=== PATIENT | male | born 1970 | race African-American/Black ===

== ENCOUNTER 2020-02-15 08:35 | Inpatient (IN) | payer OTHER ==
--- OUTSIDE RECORDS SUMMARY | 2020-02-15 08:40 | XMS ---
:1970 Author Organization [facility] Support Name Relationship Address Phone UE Unavailable Unavailable Unavailable LUCIA RAI [address] [phone] [place], [place] Re-disclosure Warning The records that you are about to access may contain information from federally- assisted alcohol or drug abuse programs. If such information is present, then the following federally mandated warning applies: This information has been disclosed to you from records protected by federal confidentiality rules (42 CFR part 2). The federal rules prohibit you from making any further disclosure of this information unless further disclosure is expressly permitted by the written consent of the person to whom it pertains or as otherwise permitted by 42 CFR part 2. A general authorization for the release of medical or other information is NOT sufficient for this purpose. The Federal rules restrict any use of the information to criminally investigate or prosecute any alcohol or drug abuse patient.The records that you are about to access may contain highly sensitive health information, the redisclosure of which is protected by Article 27-F of the [facility] Public Health law. If you continue you may haveaccess to information: Regarding HIV / AIDS; Provided by facilities licensed or operated by the [facility] Office of Mental Health; or Provided by the [facility] Office for People With Developmental Disabilities. If such information is present, then the following [facility] mandated warning applies: This information has been disclosed to you from confidential records which are protected by state law. State law prohibits you from making any further disclosure of this information without the specific written consent of the person to whom it pertains, or as otherwise permitted by law. Any unauthorized further disclosure in violation of state law may result in a fine or mcfp sentence or both. A general authorization for the release of medical or other information is NOT sufficient authorization for further disclosure. Insurance Providers Payer name Policy type Policy ID Covered Covered constitution party's Policy P brendan / Coverage constitution party ID relationship to [facility] ormation type castellon [facility] [id number] FIRST
--- NOTE | 2020-02-15 08:51 | BHS.RME ---
Substance Use & Tx History - Substance Use History Alcohol Substance amount: 1/2 pint vodka + 2 beers 24 oz Frequency of use: Daily Substance route: Oral Date of Last Use: 02/14/20 (started age 21) Heroin Substance amount: 3-5 bags heroin Frequency of use: Daily Substance route: Inhalation (ex: sniffing or snorting) Date of Last Use: 02/14/20 Nicotine Substance amount: 7 ciggs Frequency of use: Daily Substance route: Smoking Date of Last Use: 02/15/20 (started age 17) Methadone Substance amount: street 30 mg Frequency of use: Less than 5 times a year Substance route: Oral Date of Last Use: 02/15/20 (bought this 8AM to not be sick) - Last Treatment Date of last treatment: 2014 Treatment type: Substance Use Disorder (ILSA) Where was last treatment: Detox Physical/Psych/Mental Status - Behavior General Behavior: Increased activity (restlessness, agitation) Eye Contact: Normal - Cooperativeness Cooperativeness: Cooperative - Thinking Thought Processes: Tight, Logical, Goal Directed - Physical Health Problems Is patient presently having any pain?: No Does patient presently have any injuries (include location): No Does patient currently have a fever: No Is patient : No COWS - Scale Resting Pulse: 0= [place] 80 or Below Sweatin= Chills/Flushing Restless Observation: 0= Sits Still Pupil Size: 0= Normal to Room Light Bone or Joint Aches: 1= Mild Discomfort Runny Nose/ Eye Tearin= Nasal Congestion GI Upset > 30mins: 1= Stomach Cramp Tremor Observation: 1= Tremor [place], Not Seen Yawning Observation: 0= None Anxiety or Irritability: 0= None Goose Flesh Skin: 0=Smooth Skin COWS Score: 5 CIWA Nausea/Vomitin-Mild Nausea/No Vomiting Muscle Tremors: 2 Anxiety: 2 Agitation: 2 Paroxysmal Sweats: 2 Orientation: 0-Oriented Tacttile Disturbances: 0-None Auditory Disturbances: 0-None Visual Disturbances: 0-None Headache: 1-Very Mild CIWA-Ar Total Score: 10
[2020-02-15 09:08] VITALS: BMI 23.3
--- NOTE | 2020-02-15 09:39 | HP ---
COWS - Scale Resting Pulse: 0= [place] 80 or Below Sweatin= Chills/Flushing Restless Observation: 0= Sits Still Pupil Size: 0= Normal to Room Light Bone or Joint Aches: 1= Mild Discomfort Runny Nose/ Eye Tearin= Nasal Congestion GI Upset > 30mins: 1= Stomach Cramp Tremor Observation: 1= Tremor [place], Not Seen Yawning Observation: 0= None Anxiety or Irritability: 0= None Goose Flesh Skin: 0=Smooth Skin COWS Score: 5 CIWA Score Nausea/Vomitin-Mild Nausea/No Vomiting Muscle Tremors: 2 Anxiety: 2 Agitation: 2 Paroxysmal Sweats: 2 Orientation: 0-Oriented Tacttile Disturbances: 0-None Auditory Disturbances: 0-None Visual Disturbances: 0-None Headache: 1-Very Mild CIWA-Ar Total Score: 10 - Admission Criteria OASAS Guidelines: Admission for Medically Managed Detox: Requires at least one of the followin. CIWA greater than 12 2. Seizures within the past 24 hours 3. Delirium tremens within the past 24 hours 4. Hallucinations within the past 24 hours 5. Acute intervention needed for co occurring medical disorder 6. Acute intervention needed for co occurring psychiatric disorder 7. Severe withdrawal that cannot be handled at a lower level of care (continued vomiting, continued diarrhea, abnormal vital signs) requiring intravenous medication and/or fluids 8. Admitting History and Physical - Smoking History Smoking history: Current every day smoker Have you smoked in the past 12 months: Yes Aproximately how many cigarettes per day: 6 - Alcohol/Substance Use Hx Alcohol Use: Yes (1/2 to one pint Cognac and 2-3 beers daily) Admission [facility] Chief Complaint: " I need help to stop drinking and drugging." Allergies/Adverse Reactions: Allergies Allergy/AdvReac Type Severity Reaction Status Date / Time No Known Allergies Allergy Verified 02/15/20 09:19 History of Present Illness: 49 year old male with history of alcohol dependence with early withdrawal. He has been here in [facility] in 2015 and completed detox. 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 Heroin Substance amount: 3-5 bags heroin Frequency of use: Daily Substance route: Inhalation (ex: sniffing or snorting) Date of Last Use: 02/14/20 Patient never overdose and has narcan at home Nicotine Substance amount: 7 ciggs Frequency of use: Daily Substance route: Smoking Date of Last Use: 02/15/20 (started age 17) Methadone Substance amount: street 30 mg Frequency of use: Less than 5 times a year Substance route: Oral Date of Last Use: 02/15/20 (bought this 8AM to not be sick) - Last Treatment Date of last treatment: 2014 Treatment type: Substance Use Disorder (LISA) Where was last treatment: Detox CIWA= 10 CRICKET=0.000 COWS=5 mitigated by use of methadone this morning. Urine Tox: GERALDINE, FEN, MOP, MTD, BZO states he uses xanax sporadically Exam Limitations: No Limitations - Ebola screening Have you traveled outside of the country in the last 21 days: No Have you had contact with anyone from an Ebola affected area: No Have you been sick,other than usual withdrawal symptoms: No Do you have a fever: No - Review of Systems Constitutional: Chills, Diaphoresis EENT: reports: No Symptoms Reported Respiratory: reports: No Symptoms reported Cardiac: reports: No Symptoms Reported GI: reports: No Symptoms Reported : reports: No Symptoms Reported Musculoskeletal: reports: No Symptoms Reported Integumentary: reports: No Symptoms Reported Neuro: reports: No Symptoms reported Endocrine: reports: No Symptoms Reported Hematology: reports: No Symptoms Reported Psychiatric: reports: Judgement Intact, Mood/Affect Appropiate, Orientated x3, Agitated, Anxious Other Systems: Reviewed and Negative Patient History - Patient Medical History Hx Anemia: No Hx Asthma: No Hx Chronic Obstructive Pulmonary Disease (COPD): No Hx Cancer: No Hx Cardiac Disorders: No Hx Congestive Heart Failure: No Hx Hypertension: No Hx Hypercholesterolemia: No Hx Pacemaker: No HX Cerebrovascular Accident: No Hx Seizures: No Hx Dementia: No Hx Diabetes: No Hx Gastrointestinal Disorders: No Hx Liver Disease: No Hx Genitourinary Disorders: No Hx Sexually Transmitted Disorders: No Hx Renal Disease (ESRD): No Hx Thyroid Disease: No Hx Human Immunodeficiency Virus (HIV): No (NEGATIVE) Hx Hepatitis C: No Hx Depression: No Hx Suicide Attempt: No Hx Bipolar Disorder: No Hx Schizophrenia: No - Patient Surgical History Past Surgical History: No Hx Neurologic Surgery: No Hx Cataract Extraction: No Hx Cardiac Surgery: No Hx Lung Surgery: No Hx Breast Surgery: No Hx Breast Biopsy: No Hx Abdominal Surgery: No Hx Appendectomy: No Hx Cholecystectomy: No Hx Genitourinary Surgery: No Hx Section: No Hx Orthopedic Surgery: No Anesthesia Reaction: No - PPD History Previous Implant?: Yes Documented Results: Negative w/o proof Implanted On Prior [facility] Admission?: Yes Date: 07/18/14 Results: 0mm PPD to be Administered?: Yes - Smoking Cessation Smoking history: Current every day smoker Have you smoked in the past 12 months: Yes Aproximately how many cigarettes per day: 6 Hx Chewing Tobacco Use: No Initiated information on smoking cessation: Yes 'Breaking Loose' booklet given: 02/15/20 - Substances abused Alprazolam (Xanax) Other (specify): 1/2 Substance route: Oral Frequency: Daily Amount used: 1/2 tab Age of first use: 21 Date of last use: 02/14/20 Heroin Other (specify): 3-5 bags Substance route: Inhalation Frequency: Daily Amount used: 3-5 bags Age of first use: 24 Date of last use: 02/14/20 Alcohol Other (specify): 1/2 pint Substance route: Oral Frequency: Daily Amount used: vodka Age of first use: 24 Date of last use: 02/14/20 Admission Physical Exam BHS - Vital Signs Vital Signs: Vital Signs - 24 hr 02/15/20 09:06 Temperature 96.5 F L Pulse Rate 66 Respiratory 18 Rate Blood Pressure 132/85 - Physical General Appearance: Yes: Mild Distress, Irritable, Sweating, Anxious HEENTM: Yes: EOMI, Hearing grossly Normal, Normal ENT Inspection, Normocephalic, Normal Voice, PRAVEEN, Pharynx Normal, Tm's normal Respiratory: Yes: Chest Non-Tender, Lungs Clear, Normal Breath Sounds, No Respiratory Distress, No Accessory Muscle Use Neck: Yes: No masses,lesions,Nodules, Supple, Trachea in good position Breast: Yes: Within Normal Limits Cardiology: Yes: Regular Rhythm, Regular Rate, S1, S2 Abdominal: Yes: Normal Bowel Sounds, Non Tender, Flat, Soft Genitourinary: Yes: Within Normal Limits Back: Yes: Normal Inspection Musculoskeletal: Yes: full range of Motion, Gait Steady, Pelvis Stable Extremities: Yes: Normal Capillary Refill, Normal Inspection, Normal Range of Motion, Non-Tender 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: 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 intact, Fully Oriented, Alert, Motor Strength 5/5, Normal Mood/Affect, Normal Response Integumentary: Yes: Normal Color, Warm Lymphatic: Yes: Within Normal Limits Cleared for Admission S - Detox or Rehab [facility] Level of Care: Medically Managed Detox Regimen/Protocol: Librium Claeared for Rehab Admission: No Screened but not Admitted - Documentation of Visit Screened but not Admitted: No Breathalyzer - Breathalyzer Breathalyzer: 0 Vital Signs - Vital Signs Vital signs refused: No Temperature: 96.5 F Pulse Rate: 66 Respiratory Rate: 18 Blood Pressure: 132/85 BP Location: Right Arm Blood Pressure position: Sitting - Height Height: 5 ft 10 in - Weight Weight: 163 lb Weight measurement method: Standing scale - BMI Body Mass Index (BMI): 23.3 - Bowel Function Bowel Movement: No Urine Drug Screen - Test Device Lot number: [id number] Expiration date: 12/07/21 - Control Is test valid?: Yes - Results Drug screen NEGATIVE: No Urine drug screen results: GERALDINE-Cocaine, FEN-Fentanyl, MOP-Opiates, MTD- Methadone, BZO-Benzodiazepines Inpatient Rehab Admission - Rehab Decision to Admit Inpatient rehab admission?: No
[2020-02-15] MEDS ORDERED: MAGNESIUM CITRATE 300 ML BOTTLE PO PRN (09:48)
[2020-02-15] MEDS ORDERED: ACETAMINOPHEN 325 MG TABLET (FP) PO PRN ×2 (09:48)
[2020-02-15] MEDS ORDERED: ONDANSETRON *ODT* 4 MG TABLET SL PRN (09:48)
[2020-02-15] MEDS ORDERED: MAG HYDROX/AL HYDROX/SIMETH 30 ML UNIT-DOSE CUP PO PRN (09:48)
[2020-02-15] MEDS ORDERED: MAGNESIUM HYDROX 2400MG/30ML ORAL SUSPENSION 30 ML CUP PO PRN (09:48)
[2020-02-15] MEDS ORDERED: chlordiazePOXIDE HCL 25 MG CAPSULE PO PRN (09:48)
[2020-02-15] MEDS ORDERED: METHOCARBAMOL 500 MG TABLET PO PRN (09:48)
[2020-02-15] MEDS ORDERED: IBUPROFEN 400 MG TABLET (FP) PO PRN (09:48)
[2020-02-15] MEDS ORDERED: NICOTINE POLACRILEX 2 MG GUM BUC PRN (09:48)
[2020-02-15] MEDS ORDERED: BISMUTH SUBSALICYLATE 524 MG/30 ML UD PO PRN (09:48)
[2020-02-15] MEDS ORDERED: MENTHOL/PHENOL 1 EACH UD MM PRN (09:48)
--- OUTSIDE RECORDS SUMMARY | 2020-02-15 09:48 | XMS ---
:1970 [facility] Support Name Relationship Address Phone UE Unavailable Unavailable Unavailable LUCIA RAI [address] [place], [place] Re-disclosure Warning The records that [...] is protected by Article 27-F of the [facility] Public Health law. If you continue you may haveaccess to information: Regarding HIV / AIDS; Provided by facilities licensed or operated by the [facility] Office of Mental Health; or Provided by the [facility] Office for People With Developmental Disabilities. If such information is present, then the following [facility] mandated warning applies: This information has [...] law may result in a fine or snf sentence or both. A general authorization for the release of medical or other information is NOT sufficient authorization for further disclosure. Insurance Providers Payer name Policy type Policy ID Covered Covered alliance party's Policy P brendan / Coverage alliance party ID relationship to [facility] ormation type castellon [facility] [id number] FIRST
[2020-02-15] MEDS ORDERED: cloNIDine HCL 0.1 MG TABLET PO PRN (09:51)
[2020-02-15] MEDS ORDERED: METHADONE HCL 10 MG TABLET (FOR DETOX USE ONLY) PO ONE (09:51)
[2020-02-15] MEDS: chlordiazePOXIDE HCL 25 MG CAPSULE PO SCH ×3 (10:51→22:25)
[2020-02-15] MEDS: NICOTINE 7 MG/24 HOURS TOPICAL PATCH TD SCH (10:55)
[2020-02-15] MEDS: PRENATAL VITAMINS W/ FOLIC ACID TABLET (FP) PO SCH (10:55)
[2020-02-15] MEDS: hydrOXYzine PAMOATE 25 MG CAPSULE (FP) PO SCH ×4 (10:55→22:25)
[2020-02-15 14:57] LABS: HEMATOCRIT 44.2 % (35.4-49); HEMOGLOBIN 14.6 GM/dL (11.7-16.9); MEAN CELL VOLUME 88.1 fl (80-96); MEAN PLT VOLUME 8.1 fl (7.5-11.1); PLATELET COUNT 266 K/MM3 (134-434); RBC 5.02 M/mm3 (4.00-5.60); RDW 15.1 % (11.9-15.9); WHITE BLOOD COUNT 8.4 K/mm3 (4.0-10.0)
[2020-02-15 15:13] LABS: ALBUMIN 3.6 g/dl (3.4-5.0); BLOOD UREA NITROGEN 6.8 mg/dL (7-18); POTASSIUM 4.9 mmol/L (3.5-5.1)
[2020-02-15 15:14] LABS: BILIRUBIN,TOTAL 0.3 mg/dL (0.2-1); CREATININE 0.8 mg/dL (0.55-1.3); TOT PROT 7.8 g/dl (6.4-8.2)
[2020-02-15] MEDS: MELATONIN 5 MG TABLETS PO SCH (22:25)
[2020-02-15] MEDS: THIAMINE HCL 100 MG TABLET (FP) PO SCH (22:25)
[2020-02-16] MEDS: hydrOXYzine PAMOATE 25 MG CAPSULE (FP) PO SCH ×5 (06:25→23:03)
[2020-02-16] MEDS: chlordiazePOXIDE HCL 25 MG CAPSULE PO SCH ×4 (06:25→23:03)
--- NOTE | 2020-02-16 08:55 | PN ---
S CIWA - CIWA Score Nausea/Vomitin Muscle Tremors: 3 Anxiety: 2 Agitation: 2 Paroxysmal Sweats: 1-Minimal Palms Moist Orientation: 0-Oriented Tacttile Disturbances: 1-Very Mild Itch/Numbness Auditory Disturbances: 0-None Visual Disturbances: 0-None Headache: 2-Mild CIWA-Ar Total Score: 13 BHS COWS - Scale Resting Pulse: 0= [place] 80 or Below Sweatin= No chills or Flushing Restless Observation: 0= Sits Still Pupil Size: 1= Pupils >than Normal Bone or Joint Aches: 2= Severe Diffuse Aches Runny Nose/ Eye Tearin= Runny Nose/Eyes GI Upset > 30mins: 2= Nausea/Diarrhea Tremor Observation of Outstretched Hands: 2= Slight Tremor Visible Yawning Observation: 1= 1-2x During Session Anxiety or Irritability: 2=Irritable/Anxious Goose Flesh Skin: 0=Smooth Skin COWS Score: 12 S Progress Note (SOAP) Subjective: alert,irritable,anxious,interrupted sleep,tremor,pain in the body and lesly,nausea Objective: 02/16/20 11:23 Vital Signs Temperature 96.4 F L 02/16/20 08:40 Pulse Rate 60 02/16/20 08:40 Respiratory Rate 18 02/16/20 08:40 Blood Pressure 122/77 02/16/20 08:40 O2 Sat by Pulse Oximetry (%) 96 02/16/20 06:23 Laboratory Last Values WBC 8.4 K/mm3 (4.0-10.0) 02/15/20 09:45 RBC 5.02 M/mm3 (4.00-5.60) 02/15/20 09:45 Hgb 14.6 GM/dL (11.7-16.9) 02/15/20 09:45 Hct 44.2 % (35.4-49) 02/15/20 09:45 MCV 88.1 fl (80-96) 02/15/20 09:45 MCH 29.0 pg (25.7-33.7) 02/15/20 09:45 MCHC 33.0 g/dl (32.0-35.9) 02/15/20 09:45 RDW 15.1 % (11.9-15.9) 02/15/20 09:45 Plt Count 266 K/MM3 (134-434) D 02/15/20 09:45 MPV 8.1 fl (7.5-11.1) 02/15/20 09:45 Sodium 138 mmol/L (136-145) 02/15/20 09:45 Potassium 4.9 mmol/L (3.5-5.1) 02/15/20 09:45 Chloride 105 mmol/L (98-107) 02/15/20 09:45 Carbon Dioxide 30 mmol/L (21-32) 02/15/20 09:45 Anion Gap 3 MMOL/L (8-16) L 02/15/20 09:45 BUN 6.8 mg/dL (7-18) L 02/15/20 09:45 Creatinine 0.8 mg/dL (0.55-1.3) 10 09:45 Est GFR (CKD-EPI)AfAm 120.72 02/15/20 09:45 Est GFR (CKD-EPI)NonAf 104.16 02/15/20 09:45 Random Glucose 96 mg/dL (74-106) 02/15/20 09:45 Calcium 9.0 mg/dL (8.5-10.1) 02/15/20 09:45 Total Bilirubin 0.3 mg/dL (0.2-1) 02/15/20 09:45 AST 17 U/L (15-37) 02/15/20 09:45 ALT 26 U/L (13-61) 02/15/20 09:45 Alkaline Phosphatase 113 U/L (45-117) 02/15/20 09:45 Total Protein 7.8 g/dl (6.4-8.2) 02/15/20 09:45 Albumin 3.6 g/dl (3.4-5.0) 02/15/20 09:45 Syphilis Serology Non-reactive (NONREACTIVE) 02/15/20 09:45 COVID-19 (ALLIE) Not detected (Not Detected) 02/15/20 09:45 Assessment: 02/16/20 11:24 withdrawal symptom Plan: continue detox methadone and librium regimen
[2020-02-16] MEDS ORDERED: METHADONE HCL 10 MG TABLET (FOR DETOX USE ONLY) ONE (09:36)
[2020-02-16] MEDS ORDERED: METHADONE HCL 5 MG TABLET (FOR DETOX USE ONLY) ONE (09:36)
[2020-02-16] MEDS ORDERED: METHADONE (DETOX) 20 MG, METHADONE (DETOX) 5 MG PO ONE (10:00)
[2020-02-16] MEDS: NICOTINE 7 MG/24 HOURS TOPICAL PATCH TD SCH (10:07)
[2020-02-16] MEDS: PRENATAL VITAMINS W/ FOLIC ACID TABLET (FP) PO SCH (10:07)
[2020-02-16] MEDS ORDERED: guaiFENesin 200 MG/10 ML 10 ML UNIT-DOSE CUPS PO PRN (18:43)
[2020-02-16] MEDS: THIAMINE HCL 100 MG TABLET (FP) PO SCH (23:03)
[2020-02-16] MEDS: MELATONIN 5 MG TABLETS PO SCH (23:03)
[2020-02-17] MEDS: chlordiazePOXIDE HCL 25 MG CAPSULE PO SCH ×4 (07:39→22:18)
[2020-02-17] MEDS: hydrOXYzine PAMOATE 25 MG CAPSULE (FP) PO SCH ×5 (07:40→22:18)
--- NOTE | 2020-02-17 09:40 | PN ---
[facility] CIWA - CIWA Score Nausea/Vomitin-Mild Nausea/No Vomiting Muscle Tremors: 2 Anxiety: 2 Agitation: 2 Paroxysmal Sweats: No Perspiration Orientation: 0-Oriented Tacttile Disturbances: 1-Very Mild Itch/Numbness Auditory Disturbances: 0-None Visual Disturbances: 0-None Headache: 1-Very Mild CIWA-Ar Total Score: 9 BHS COWS - Scale Resting Pulse: 0= [place] 80 or Below Sweatin= No chills or Flushing Restless Observation: 0= Sits Still Pupil Size: 1= Pupils >than Normal Bone or Joint Aches: 2= Severe Diffuse Aches Runny Nose/ Eye Tearin= Nasal Congestion GI Upset > 30mins: 1= Stomach Cramp Tremor Observation of Outstretched Hands: 2= Slight Tremor Visible Yawning Observation: 1= 1-2x During Session Anxiety or Irritability: 2=Irritable/Anxious Goose Flesh Skin: 0=Smooth Skin COWS Score: 10 [facility] Progress Note (SOAP) Subjective: alert,irritable,anxious,interrupted sleep,tremor,aching pain body and back,nausea Objective: 02/17/20 09:38 Vital Signs Temperature 97.8 F 02/17/20 08:42 Pulse Rate 74 02/17/20 08:42 Respiratory Rate 18 02/17/20 08:42 Blood Pressure 130/92 02/17/20 08:42 O2 Sat by Pulse Oximetry (%) 96 02/17/20 06:23 Laboratory Last Values WBC 8.4 K/mm3 (4.0-10.0) 02/15/20 09:45 RBC 5.02 M/mm3 (4.00-5.60) 02/15/20 09:45 Hgb 14.6 GM/dL (11.7-16.9) 02/15/20 09:45 Hct 44.2 % (35.4-49) 02/15/20 09:45 MCV 88.1 fl (80-96) 02/15/20 09:45 MCH 29.0 pg (25.7-33.7) 02/15/20 09:45 MCHC 33.0 g/dl (32.0-35.9) 02/15/20 09:45 RDW 15.1 % (11.9-15.9) 02/15/20 09:45 Plt Count 266 K/MM3 (134-434) D 02/15/20 09:45 MPV 8.1 fl (7.5-11.1) 02/15/20 09:45 Sodium 138 mmol/L (136-145) 02/15/20 09:45 Potassium 4.9 mmol/L (3.5-5.1) 02/15/20 09:45 Chloride 105 mmol/L (98-107) 02/15/20 09:45 Carbon Dioxide 30 mmol/L (21-32) 02/15/20 09:45 Anion Gap 3 MMOL/L (8-16) L 02/15/20 09:45 BUN 6.8 mg/dL (7-18) L 02/15/20 09:45 Creatinine 0.8 mg/dL (0.55-1.3) 10 09:45 Est GFR (CKD-EPI)AfAm 120.72 10 09:45 Est GFR (CKD-EPI)NonAf 104.16 02/15/20 09:45 Random Glucose 96 mg/dL (74-106) 02/15/20 09:45 Calcium 9.0 mg/dL (8.5-10.1) 02/15/20 09:45 Total Bilirubin 0.3 mg/dL (0.2-1) 02/15/20 09:45 AST 17 U/L (15-37) 02/15/20 09:45 ALT 26 U/L (13-61) 02/15/20 09:45 Alkaline Phosphatase 113 U/L (45-117) 02/15/20 09:45 Total Protein 7.8 g/dl (6.4-8.2) 02/15/20 09:45 Albumin 3.6 g/dl (3.4-5.0) 02/15/20 09:45 Syphilis Serology Non-reactive (NONREACTIVE) 02/15/20 09:45 COVID-19 (ALLIE) Not detected (Not Detected) 02/15/20 09:45 Assessment: 02/17/20 09:39 withdrawal symptom Plan: continue detox methadone and librium regimen
[2020-02-17] MEDS ORDERED: METHADONE HCL 10 MG TABLET (FOR DETOX USE ONLY) PO ONE (10:00)
[2020-02-17] MEDS: NICOTINE 7 MG/24 HOURS TOPICAL PATCH TD SCH (10:14)
[2020-02-17] MEDS: PRENATAL VITAMINS W/ FOLIC ACID TABLET (FP) PO SCH (10:15)
[2020-02-17] MEDS: MELATONIN 5 MG TABLETS PO SCH (22:18)
[2020-02-17] MEDS: THIAMINE HCL 100 MG TABLET (FP) PO SCH (22:18)
[2020-02-18] MEDS ORDERED: chlordiazePOXIDE HCL 10 MG CAPSULE PO PRN
[2020-02-18] MEDS: hydrOXYzine PAMOATE 25 MG CAPSULE (FP) PO SCH ×5 (06:11→22:32)
[2020-02-18] MEDS: chlordiazePOXIDE HCL 10 MG CAPSULE PO SCH ×4 (06:11→22:32)
--- NOTE | 2020-02-18 08:40 | PN ---
[facility] CIWA - CIWA Score Nausea/Vomitin-Mild Nausea/No Vomiting Muscle Tremors: 2 Anxiety: 2 Agitation: 1-Slight > Activity Paroxysmal Sweats: No Perspiration Orientation: 0-Oriented Tacttile Disturbances: 0-None Auditory Disturbances: 0-None Visual Disturbances: 0-None Headache: 1-Very Mild CIWA-Ar Total Score: 7 S COWS - Scale Resting Pulse: 0= [place] 80 or Below Sweatin= No chills or Flushing Restless Observation: 0= Sits Still Pupil Size: 1= Pupils >than Normal Bone or Joint Aches: 1= Mild Discomfort Runny Nose/ Eye Tearin= Nasal Congestion GI Upset > 30mins: 1= Stomach Cramp Tremor Observation of Outstretched Hands: 1= Tremor [place], Not Seen Yawning Observation: 1= 1-2x During Session Anxiety or Irritability: 1=Feels Anxious/Irritable Goose Flesh Skin: 0=Smooth Skin COWS Score: 7 [facility] Progress Note (SOAP) Subjective: alert,irritable,anxious,interrupted sleep,aching pain, Objective: 02/18/20 11:29 Vital Signs Temperature 97.5 F L 02/18/20 08:27 Pulse Rate 68 02/18/20 08:27 Respiratory Rate 18 02/18/20 08:27 Blood Pressure 123/78 02/18/20 08:27 O2 Sat by Pulse Oximetry (%) 97 02/18/20 06:07 Assessment: 02/18/20 11:29 withdrawal symptom Plan: continue detox methadone and librium regimen
[2020-02-18] MEDS ORDERED: METHADONE HCL 10 MG TABLET (FOR DETOX USE ONLY) ONE (08:58)
[2020-02-18] MEDS ORDERED: METHADONE HCL 5 MG TABLET (FOR DETOX USE ONLY) ONE (08:58)
[2020-02-18] MEDS ORDERED: METHADONE (DETOX) 10 MG, METHADONE (DETOX) 5 MG PO ONE (10:00)
[2020-02-18] MEDS: PRENATAL VITAMINS W/ FOLIC ACID TABLET (FP) PO SCH (10:10)
[2020-02-18] MEDS: NICOTINE 7 MG/24 HOURS TOPICAL PATCH TD SCH (10:10)
[2020-02-18] MEDS: THIAMINE HCL 100 MG TABLET (FP) PO SCH (22:32)
[2020-02-18] MEDS: MELATONIN 5 MG TABLETS PO SCH (22:32)
[2020-02-19] MEDS: chlordiazePOXIDE HCL 10 MG CAPSULE PO SCH ×2 (06:28→18:16)
[2020-02-19] MEDS: hydrOXYzine PAMOATE 25 MG CAPSULE (FP) PO SCH ×5 (06:28→22:50)
[2020-02-19] MEDS ORDERED: METHADONE HCL 10 MG TABLET (FOR DETOX USE ONLY) PO ONE (10:00)
[2020-02-19] MEDS: NICOTINE 7 MG/24 HOURS TOPICAL PATCH TD SCH (10:22)
[2020-02-19] MEDS: PRENATAL VITAMINS W/ FOLIC ACID TABLET (FP) PO SCH (10:22)
--- NOTE | 2020-02-19 10:37 | PN ---
[facility] CIWA - CIWA Score Nausea/Vomitin-No Nausea/No Vomiting Muscle Tremors: 2 Anxiety: 2 Agitation: 1-Slight > Activity Paroxysmal Sweats: No Perspiration Orientation: 0-Oriented Tacttile Disturbances: 0-None Auditory Disturbances: 0-None Visual Disturbances: 0-None Headache: 1-Very Mild CIWA-Ar Total Score: 6 BHS COWS - Scale Resting Pulse: 1= [place] 81-100 Sweatin= No chills or Flushing Restless Observation: 0= Sits Still Pupil Size: 0= Normal to Room Light Bone or Joint Aches: 1= Mild Discomfort Runny Nose/ Eye Tearin= Nasal Congestion GI Upset > 30mins: 1= Stomach Cramp Tremor Observation of Outstretched Hands: 1= Tremor [place], Not Seen Yawning Observation: 0= None Anxiety or Irritability: 2=Irritable/Anxious Goose Flesh Skin: 0=Smooth Skin COWS Score: 7 S Progress Note (SOAP) Subjective: alert,irritable,anxious,interrupted sleep,tremor,pain in the body and back Objective: 02/19/20 11:55 Vital Signs Temperature 97.8 F 02/19/20 08:38 Pulse Rate 81 02/19/20 08:38 Respiratory Rate 18 02/19/20 08:38 Blood Pressure 119/86 02/19/20 08:38 O2 Sat by Pulse Oximetry (%) 96 02/18/20 20:19 02/19/20 12:09 Laboratory Last Values WBC 8.4 K/mm3 (4.0-10.0) 02/15/20 09:45 RBC 5.02 M/mm3 (4.00-5.60) 02/15/20 09:45 Hgb 14.6 GM/dL (11.7-16.9) 02/15/20 09:45 Hct 44.2 % (35.4-49) 02/15/20 09:45 MCV 88.1 fl (80-96) 02/15/20 09:45 MCH 29.0 pg (25.7-33.7) 02/15/20 09:45 MCHC 33.0 g/dl (32.0-35.9) 02/15/20 09:45 RDW 15.1 % (11.9-15.9) 02/15/20 09:45 Plt Count 266 K/MM3 (134-434) D 02/15/20 09:45 MPV 8.1 fl (7.5-11.1) 02/15/20 09:45 Sodium 138 mmol/L (136-145) 02/15/20 09:45 Potassium 4.9 mmol/L (3.5-5.1) 02/15/20 09:45 Chloride 105 mmol/L (98-107) 02/15/20 09:45 Carbon Dioxide 30 mmol/L (21-32) 02/15/20 09:45 Anion Gap 3 MMOL/L (8-16) L 02/15/20 09:45 BUN 6.8 mg/dL (7-18) L 02/15/20 09:45 Creatinine 0.8 mg/dL (0.55-1.3) 10 09:45 Est GFR (CKD-EPI)AfAm 120.72 10 09:45 Est GFR (CKD-EPI)NonAf 104.16 02/15/20 09:45 Random Glucose 96 mg/dL (74-106) 02/15/20 09:45 Calcium 9.0 mg/dL (8.5-10.1) 02/15/20 09:45 Total Bilirubin 0.3 mg/dL (0.2-1) 02/15/20 09:45 AST 17 U/L (15-37) 02/15/20 09:45 ALT 26 U/L (13-61) 02/15/20 09:45 Alkaline Phosphatase 113 U/L (45-117) 02/15/20 09:45 Total Protein 7.8 g/dl (6.4-8.2) 02/15/20 09:45 Albumin 3.6 g/dl (3.4-5.0) 02/15/20 09:45 Syphilis Serology Non-reactive (NONREACTIVE) 02/15/20 09:45 COVID-19 (ALLIE) Not detected (Not Detected) 02/15/20 09:45 Assessment: 02/19/20 12:11 withdrawal symptom Plan: continue detox methadone and librium regimen,discharge in am
[2020-02-19] MEDS: THIAMINE HCL 100 MG TABLET (FP) PO SCH (22:50)
[2020-02-19] MEDS: MELATONIN 5 MG TABLETS PO SCH (22:50)
[2020-02-20] MEDS ORDERED: chlordiazePOXIDE HCL 10 MG CAPSULE PO ONE (05:00)
[2020-02-20] MEDS ORDERED: METHADONE HCL 5 MG TABLET (FOR DETOX USE ONLY) PO ONE (06:00)
[2020-02-20 06:21] VITALS: TEMP 97.3
[2020-02-20] MEDS: hydrOXYzine PAMOATE 25 MG CAPSULE (FP) PO SCH (06:49)
[2020-02-20 09:53] VITALS: BP 110/74; PULSE 80
--- NOTE | 2020-02-20 10:41 | DS ---
[facility] Detox Discharge Summary Admission Date: 02/15/20 Discharge Date: 02/20/20 - History Present History: Alcohol Dependence, Opioid Dependence Additional Comments: Pt is medically cleared and discharged today. Pt completed the detox protocol. Pt is encouraged to follow-up with an outpatient CD program and also to follow- up with his pmd which he verbalized understanding. Pt is AOX3, in no acute respiratory distress, full ROM, and ambulatory. Pertinent Past History: h/o alcohol and heroin use disorder. - Physical Exam Results Vital Signs: Vital Signs Temperature 97.3 F L 02/20/20 08:42 Pulse Rate 80 02/20/20 08:42 Respiratory Rate 18 02/20/20 08:42 Blood Pressure 110/74 02/20/20 08:42 O2 Sat by Pulse Oximetry (%) 99 02/20/20 06:20 Vital Signs 02/20/20 02/20/20 06:20 08:42 Temperature 97.3 F L 97.3 F L Pulse Rate 64 80 Respiratory 18 18 Rate Blood Pressure 110/71 110/74 O2 Sat by Pulse 99 Oximetry (%) Laboratory Last Values WBC 8.4 K/mm3 (4.0-10.0) 02/15/20 09:45 RBC 5.02 M/mm3 (4.00-5.60) 02/15/20 09:45 Hgb 14.6 GM/dL (11.7-16.9) 02/15/20 09:45 Hct 44.2 % (35.4-49) 02/15/20 09:45 MCV 88.1 fl (80-96) 02/15/20 09:45 MCH 29.0 pg (25.7-33.7) 02/15/20 09:45 MCHC 33.0 g/dl (32.0-35.9) 02/15/20 09:45 RDW 15.1 % (11.9-15.9) 02/15/20 09:45 Plt Count 266 K/MM3 (134-434) D 02/15/20 09:45 MPV 8.1 fl (7.5-11.1) 02/15/20 09:45 Sodium 138 mmol/L (136-145) 02/15/20 09:45 Potassium 4.9 mmol/L (3.5-5.1) 02/15/20 09:45 Chloride 105 mmol/L (98-107) 02/15/20 09:45 Carbon Dioxide 30 mmol/L (21-32) 02/15/20 09:45 Anion Gap 3 MMOL/L (8-16) L 02/15/20 09:45 BUN 6.8 mg/dL (7-18) L 02/15/20 09:45 Creatinine 0.8 mg/dL (0.55-1.3) 02/15/20 09:45 Est GFR (CKD-EPI)AfAm 120.72 02/15/20 09:45 Est GFR (CKD-EPI)NonAf 104.16 02/15/20 09:45 Random Glucose 96 mg/dL (74-106) 02/15/20 09:45 Calcium 9.0 mg/dL (8.5-10.1) 02/15/20 09:45 Total Bilirubin 0.3 mg/dL (0.2-1) 02/15/20 09:45 AST 17 U/L (15-37) 02/15/20 09:45 ALT 26 U/L (13-61) 02/15/20 09:45 Alkaline Phosphatase 113 U/L (45-117) 02/15/20 09:45 Total Protein 7.8 g/dl (6.4-8.2) 02/15/20 09:45 Albumin 3.6 g/dl (3.4-5.0) 02/15/20 09:45 Syphilis Serology Non-reactive (NONREACTIVE) 02/15/20 09:45 COVID-19 (ALLIE) Not detected (Not Detected) 02/15/20 09:45 Labs noted. Pertinent Admission Physical Exam Findings: withdrawal symptoms. - Treatment Hospital Course: Detox Protocol Followed, Detoxed Safely, Responded well, Discharged Condition Good - Medication Discharge Medications: Ambulatory Orders NK [No Known Home Medication] 07/16/14 - Diagnosis (1) Opioid dependence Status: Chronic (2) Alcohol dependence Status: Chronic (3) Nicotine dependence Status: Chronic (4) Alcohol withdrawal Status: Acute (5) Opioid withdrawal Status: Acute - AMA Did Patient Leave Against Medical Advice: No
== END 2020-02-20 09:27 | disposition home or self-care (01) | DRG 773 ==
LOC: YASAS 08:35 → Y3N 09:44
PROVIDERS: ADMIT Allergy & Immunology; ATTEND Allergy & Immunology
PROC: HZ2ZZZZ Detoxification Services for Substance Abuse Treatment (ICD-10-PCS; principal; 2020-02-15)
DX: F10.230 Alcohol dependence with withdrawal, uncomplicated (principal); F11.23 Opioid dependence with withdrawal; F13.20 Sedative, hypnotic or anxiolytic dependence, uncomplicated; F17.210 Nicotine dependence, cigarettes, uncomplicated; Z59.0 Homelessness
CPT/HCPCS: 36415; 80053; 85027; 86780; C9803; U0003

== ENCOUNTER 2024-04-19 21:44 | Inpatient (IN) | payer OTHER ==
[2024-04-19 23:16] VITALS: BMI 17.2
[2024-04-19] MEDS ORDERED: BISMUTH SUBSALICYLATE 524 MG/30 ML PO PRN (23:26)
[2024-04-19] MEDS ORDERED: LOPERAMIDE HCL 2 MG CAPSULE PO PRN (23:26)
[2024-04-19] MEDS ORDERED: NALOXONE (NARCAN) HCL 4 MG/0.1 ML SPRAY NS PRN (23:26)
[2024-04-19] MEDS ORDERED: MAG HYDROX/AL HYDROX/SIMETH 30 ML UNIT-DOSE CUP PO PRN (23:26)
[2024-04-19] MEDS ORDERED: ACETAMINOPHEN 325 MG TABLET (FP) PO PRN (23:26)
[2024-04-19] MEDS ORDERED: DICYCLOMINE HCL 10 MG CAPSULE PO PRN (23:26)
[2024-04-19] MEDS ORDERED: BENZOCAINE/MENTHOL (CHLORASEPTIC ) LOZENGE MM PRN (23:26)
[2024-04-19] MEDS ORDERED: BENZONATATE 200 MG CAPSULE PO PRN (23:26)
[2024-04-19] MEDS ORDERED: IBUPROFEN 600 MG TABLET (FP) PO PRN (23:26)
[2024-04-19] MEDS ORDERED: METHOCARBAMOL 500 MG TABLET PO PRN (23:26)
[2024-04-19] MEDS ORDERED: IBUPROFEN 400 MG TABLET (FP) PO PRN (23:26)
[2024-04-19] MEDS ORDERED: hydrOXYzine PAMOATE 25 MG CAPSULE (FP) PO PRN (23:26)
[2024-04-19] MEDS ORDERED: MAGNESIUM HYDROX 2400MG/30ML ORAL SUSPENSION 30 ML CUP PO PRN (23:26)
[2024-04-19] MEDS ORDERED: guaiFENesin 600 MG TABLET.ER (FP) PO PRN (23:26)
[2024-04-19] MEDS ORDERED: POLYETHYLENE GLYCOL (HEALTHYLAX) 3350 17 GM PACKET PO PRN (23:26)
[2024-04-19] MEDS ORDERED: NICOTINE POLACRILEX 4 MG GUM BUC PRN (23:26)
[2024-04-19] MEDS ORDERED: ONDANSETRON *ODT* 4 MG TABLET SL PRN (23:26)
[2024-04-20] MEDS ORDERED: cloNIDine HCL 0.1 MG TABLET ONE (08:03)
[2024-04-20] MEDS: cloNIDine HCL 0.1 MG TABLET PO ONE (08:05)
[2024-04-20] MEDS ORDERED: methaDONE HCL 40 MG DISPERSABLE TABLET PO SCH (10:00)
[2024-04-20] MEDS ORDERED: NICOTINE 21 MG/24 HOURS TOPICAL PATCH TD SCH (10:00)
[2024-04-20] MEDS ORDERED: PRENATAL VITAMINS W/ FOLIC ACID TABLET (FP) PO SCH (10:00)
[2024-04-20] MEDS ORDERED: LOPERAMIDE HCL 2 MG CAPSULE PO PRN (10:49)
[2024-04-20] MEDS ORDERED: BENZONATATE 200 MG CAPSULE PO PRN (10:49)
[2024-04-20] MEDS ORDERED: MAGNESIUM HYDROX 2400MG/30ML ORAL SUSPENSION 30 ML CUP PO PRN (10:49)
[2024-04-20] MEDS ORDERED: IBUPROFEN 400 MG TABLET (FP) PO PRN (10:49)
[2024-04-20] MEDS ORDERED: MAG HYDROX/AL HYDROX/SIMETH 30 ML UNIT-DOSE CUP PO PRN (10:49)
[2024-04-20] MEDS ORDERED: ONDANSETRON *ODT* 4 MG TABLET SL PRN (10:49)
[2024-04-20] MEDS ORDERED: NALOXONE (NARCAN) HCL 4 MG/0.1 ML SPRAY NS PRN (10:49)
[2024-04-20] MEDS ORDERED: POLYETHYLENE GLYCOL (HEALTHYLAX) 3350 17 GM PACKET PO PRN (10:49)
[2024-04-20] MEDS ORDERED: BISMUTH SUBSALICYLATE 262 MG/15 ML BTL PO PRN (10:49)
[2024-04-20] MEDS ORDERED: hydrOXYzine PAMOATE 25 MG CAPSULE (FP) PO PRN (10:49)
[2024-04-20] MEDS ORDERED: NICOTINE POLACRILEX 2 MG GUM BUC PRN (10:49)
[2024-04-20] MEDS ORDERED: DICYCLOMINE HCL 10 MG CAPSULE PO PRN (10:49)
[2024-04-20] MEDS ORDERED: BENZOCAINE/MENTHOL (CHLORASEPTIC ) LOZENGE MM PRN (10:49)
[2024-04-20] MEDS ORDERED: guaiFENesin 600 MG TABLET.ER (FP) PO PRN (10:49)
[2024-04-20] MEDS ORDERED: ACETAMINOPHEN 325 MG TABLET (FP) PO PRN (10:49)
[2024-04-20] MEDS ORDERED: methaDONE HCL 10 MG TABLET ONE (11:03)
[2024-04-20] MEDS: methaDONE 80 MG, methaDONE 10 MG PO SCH (11:11)
[2024-04-20] MEDS: INSULIN ASPART SLIDING SCALE (NOVOLOG) 1 VIAL SQ SCH (11:34)
[2024-04-20] MEDS ORDERED: ALBUTEROL SO4 HFA INHALER IH PRN (17:08)
[2024-04-20] MEDS ORDERED: MELATONIN 5 MG TABLETS PO SCH (22:00)
[2024-04-20] MEDS ORDERED: THIAMINE 100 MG TABLET PO SCH (22:00)
[2024-04-20] MEDS: ROSUVASTATIN CA 10 MG TABLET PO SCH (22:40)
[2024-04-20] MEDS: BUDESONIDE/FORMETEROL FUMARATE 160/4.5 mcg INHALER IH SCH (22:45)
[2024-04-20] MEDS: MELATONIN 5 MG TABLETS PO SCH (22:45)
[2024-04-20] MEDS: THIAMINE 100 MG TABLET PO SCH (22:46)
[2024-04-21] MEDS: methaDONE 80 MG, methaDONE 10 MG PO SCH (06:44)
[2024-04-21] MEDS: metFORMIN HCL 500 MG TABLET (FP) PO SCH (06:44)
[2024-04-21] MEDS: IBUPROFEN 600 MG TABLET (FP) PO PRN (08:41)
[2024-04-21] MEDS: PRENATAL VITAMINS W/ FOLIC ACID TABLET (FP) PO SCH (09:28)
[2024-04-21 11:28] LABS: HEMATOCRIT 29.3 % (35.4-49); HEMOGLOBIN 9.4 GM/dL (11.7-16.9); MCH 26.7 pg (25.7-33.7); MCHC 32.1 g/dl (32.0-35.9); MEAN CELL VOLUME 83.2 fl (80-96); MEAN PLT VOLUME 6.6 fl (7.5-11.1); PLATELET COUNT 362 10^3/uL (134-434); RBC 3.52 M/mm3 (4.00-5.60); RDW 13.6 % (11.9-15.9); WHITE BLOOD COUNT 6.1 K/mm3 (4.0-10.0)
[2024-04-21 11:42] LABS: CHLORIDE 109 mmol/L (98-107); POTASSIUM 4.1 mmol/L (3.5-5.1); SODIUM 141 mmol/L (136-145)
[2024-04-21 11:48] LABS: ALBUMIN 2.2 g/dl (3.4-5.0); ANION GAP 6 mmol/L (4-13); CALCIUM 8.1 mg/dL (8.5-10.1); CO2 27 mmol/L (21-32); GLUCOSE,RANDOM 103 mg/dL (74-106)
[2024-04-21 11:50] LABS: SGPT/ALT 31 U/L (13-61)
[2024-04-21 11:51] LABS: BILIRUBIN,TOTAL 0.2 mg/dL (0.2-1); SGOT/AST 32 U/L (15-37)
[2024-04-21 11:52] LABS: ALK PHOS 85 U/L (45-117); TOT PROT 5.9 g/dl (6.4-8.2)
[2024-04-21] MEDS: METHOCARBAMOL 500 MG TABLET PO PRN (22:40)
[2024-04-22] MEDS: NALOXONE (NYS OPIOID OVERDOSE PROGRAM) 4 MG/0.1 ML SPRAY NS SCH (09:08)
[2024-04-22 13:34] VITALS: BP 161/98; PULSE 97; RESP 18; TEMP 97.7
== END 2024-04-22 15:55 | disposition other institution (70) | DRG 773 ==
LOC: YASAS 21:44 → Y3N 04-20 11:03
PROVIDERS: ADMIT Allergy & Immunology; ATTEND Surgery
PROC: HZ2ZZZZ Detoxification Services for Substance Abuse Treatment (ICD-10-PCS; principal; 2024-04-20)
DX: F11.20 Opioid dependence, uncomplicated (principal); F10.20 Alcohol dependence, uncomplicated; F14.20 Cocaine dependence, uncomplicated; F17.210 Nicotine dependence, cigarettes, uncomplicated; F19.24 Other psychoactive substance dependence with psychoactive substance-induced mood disorder; E78.5 Hyperlipidemia, unspecified; L03.115 Cellulitis of right lower limb; L03.116 Cellulitis of left lower limb; E11.9 Type 2 diabetes mellitus without complications; Z79.84 Long term (current) use of oral hypoglycemic drugs; J44.9 Chronic obstructive pulmonary disease, unspecified; Z99.89 Dependence on other enabling machines and devices
CPT/HCPCS: 36415; 80053; 80307; 82962; 83880; 85025; 85027; 85651; 86140; 86780; 86803; 87389; 93005; 93010; 93970-TC; J0875

== ENCOUNTER 2024-04-22 15:46 | Inpatient (IN) | payer OTHER ==
[2024-04-22] MEDS ORDERED: NICOTINE POLACRILEX 2 MG GUM BUC PRN (18:07)
[2024-04-22] MEDS ORDERED: NICOTINE POLACRILEX 2 MG LOZENGE BC PRN (18:07)
[2024-04-22] MEDS ORDERED: MAGNESIUM HYDROX 2400MG/30ML ORAL SUSPENSION 30 ML CUP PO PRN (18:07)
[2024-04-22] MEDS ORDERED: guaiFENesin 600 MG TABLET.ER (FP) PO PRN (18:07)
[2024-04-22] MEDS ORDERED: BENZONATATE 200 MG CAPSULE PO PRN (18:07)
[2024-04-22] MEDS ORDERED: NALOXONE (NARCAN) HCL 4 MG/0.1 ML SPRAY NS PRN (18:07)
[2024-04-22] MEDS ORDERED: POLYETHYLENE GLYCOL (HEALTHYLAX) 3350 17 GM PACKET PO PRN (18:07)
[2024-04-22] MEDS ORDERED: IBUPROFEN 400 MG TABLET (FP) PO PRN (18:07)
[2024-04-22] MEDS ORDERED: MAG HYDROX/AL HYDROX/SIMETH 30 ML UNIT-DOSE CUP PO PRN (18:07)
[2024-04-22] MEDS ORDERED: hydrOXYzine PAMOATE 25 MG CAPSULE (FP) PO PRN (18:07)
[2024-04-22] MEDS ORDERED: BENZOCAINE/MENTHOL (CHLORASEPTIC ) LOZENGE MM PRN (18:07)
[2024-04-22] MEDS ORDERED: NALOXONE HCL 0.4 MG/ML VIAL IVPUSH PRN (18:07)
[2024-04-22] MEDS ORDERED: ALBUTEROL SO4 HFA INHALER IH PRN (18:07)
[2024-04-22] MEDS: ROSUVASTATIN CA 10 MG TABLET PO SCH (22:44)
[2024-04-22] MEDS: THIAMINE 100 MG TABLET PO SCH (22:44)
[2024-04-22] MEDS: IBUPROFEN 600 MG TABLET (FP) PO PRN (22:45)
[2024-04-22] MEDS: METHOCARBAMOL 500 MG TABLET PO PRN (22:45)
[2024-04-22] MEDS: BUDESONIDE/FORMETEROL FUMARATE 160/4.5 mcg INHALER IH SCH (22:49)
[2024-04-22] MEDS: MELATONIN 5 MG TABLETS PO SCH (22:50)
[2024-04-23] MEDS ORDERED: methaDONE HCL 40 MG DISPERSABLE TABLET PO SCH (06:00)
[2024-04-23] MEDS: methaDONE 80 MG, methaDONE 10 MG PO SCH (06:38)
[2024-04-23] MEDS: metFORMIN HCL 500 MG TABLET (FP) PO SCH (06:39)
[2024-04-23] MEDS: PRENATAL VITAMINS W/ FOLIC ACID TABLET (FP) PO SCH (10:31)
[2024-04-24] MEDS: hydrALAZINE HCL 25 MG TABLET (FP) PO ONE (06:14)
[2024-04-24] MEDS: hydrOXYzine PAMOATE 25 MG CAPSULE (FP) PO PRN (08:10)
[2024-04-24 12:46] LABS: INR 0.94 (0.83-1.09); PROTHROMBIN TIME (PATIENT) 10.8 SEC (9.7-13.0)
[2024-04-24] MEDS ORDERED: TUBERCULIN PPD 5 TU/0.1ML VIAL ID ONE (13:42)
[2024-04-25] MEDS: MAGNESIUM OXIDE 400 MG TABLET (FP) PO SCH (10:05)
[2024-04-25] MEDS ORDERED: INSULIN ASPART SLIDING SCALE (NOVOLOG) 1 VIAL SQ SCH (16:30)
[2024-04-27] MEDS: LOPERAMIDE HCL 2 MG CAPSULE PO PRN (21:51)
[2024-04-28] MEDS: HYDROCHLOROTHIAZIDE 25 MG TABLET (FP) PO SCH (15:18)
[2024-04-28] MEDS: GABAPENTIN 100 MG CAPSULE PO SCH (21:14)
[2024-04-28] MEDS: SUVOREXANT 10 MG TABLET PO PRN (21:15)
[2024-04-28] MEDS: RIFAXIMIN 550 MG TABLET PO SCH (21:42)
[2024-05-01] MEDS: VITAMINS A AND D TOPICAL OINTMENT TP SCH (13:39)
[2024-05-01] MEDS ORDERED: VITAMINS A AND D TOPICAL OINTMENT TP PRN (20:56)
[2024-05-02] MEDS: SUVOREXANT 10 MG TABLET PO PRN (00:20)
[2024-05-02] MEDS: methaDONE HCL 40 MG DISPERSABLE TABLET PO SCH (05:59)
[2024-05-02] MEDS ORDERED: guaiFENesin/D-METHORPHAN HB 10 ML UNIT-DOSE CUPS PO PRN (06:24)
[2024-05-02] MEDS: ACETAMINOPHEN 325 MG TABLET (FP) PO PRN (06:46)
[2024-05-02] MEDS: guaiFENesin 200 MG/10 ML 10 ML UNIT-DOSE CUPS PO PRN (07:11)
[2024-05-02] MEDS: FUROSEMIDE 20 MG TABLET (FP) PO ONE (20:40)
[2024-05-02 22:39] LABS: EPI CELLS 1 /uL (0-25.1); HYALINE CASTS 0 /uL (0-3.1); PH,URINE 7.5 (5.0-8.0); URINE APPEARANCE CLOUDY; URINE BACTERIA >9,000 /uL (0-1359); URINE BILIRUBIN NEGATIVE (NEGATIVE); URINE COLOR YELLOW; URINE GLUCOSE (UA) NEGATIVE (NEGATIVE); URINE KETONE NEGATIVE (NEGATIVE); URINE LEUK ESTERASE 3+ (NEGATIVE); URINE NITRITE POSITIVE (NEGATIVE); URINE PROTEIN 2+ (NEGATIVE); URINE RBC 106 /uL (0-23.9); URINE UROBILINOGEN 0.2 mg/dL (0.2-1.0); URINE WBC 1833 /uL (0-25.8)
[2024-05-03] MEDS ORDERED: FUROSEMIDE 20 MG TABLET (FP) PO SCH ×2 (06:00→10:00)
[2024-05-03 08:49] LABS: BASO % 0.5 % (0-2.0); EOS % 0.3 % (0-4.5); HEMATOCRIT 32.4 % (35.4-49); HEMOGLOBIN 10.4 GM/dL (11.7-16.9); LYMPH % 8.6 % (8-40); MCH 26.5 pg (25.7-33.7); MCHC 32.1 g/dl (32.0-35.9); MEAN CELL VOLUME 82.4 fl (80-96); MEAN PLT VOLUME 7.5 fl (7.5-11.1); MONO % 14.1 % (3.8-10.2); NEUT % 76.5 % (42.8-82.8); PLATELET COUNT 405 10^3/uL (134-434); POTASSIUM 5.5 mmol/L (3.5-5.1); RBC 3.93 M/mm3 (4.00-5.60); RDW 14.6 % (11.9-15.9)
[2024-05-03 08:56] LABS: CALCIUM 9.3 mg/dL (8.5-10.1)
[2024-05-03 08:57] LABS: BLOOD UREA NITROGEN 19.7 mg/dL (7-18); INR 1.14 (0.83-1.09); PROTHROMBIN TIME (PATIENT) 12.8 SEC (9.7-13.0)
[2024-05-03 09:00] LABS: CREATININE 0.9 mg/dL (0.55-1.3)
[2024-05-03 09:02] LABS: BILIRUBIN,TOTAL 0.6 mg/dL (0.2-1)
[2024-05-03] MEDS: SULFAMETHOXAZOLE/TRIMETHOPRIM 800MG/160MG D.S. TABLET PO SCH (10:16)
[2024-05-03] MEDS: FERROUS SO4 325 MG TABLET (FP) PO SCH (10:16)
[2024-05-03] MEDS: INSULIN ASPART SLIDING SCALE (NOVOLOG) 1 VIAL SQ SCH (11:18)
[2024-05-04] MEDS: NITROFURANTOIN MONOHYD/M-CRYST 100 MG CAPSULE PO SCH (13:59)
[2024-05-04 14:59] LABS: POTASSIUM 4.6 mmol/L (3.5-5.1)
[2024-05-04 15:09] LABS: BLOOD UREA NITROGEN 22.5 mg/dL (7-18); CALCIUM 9.3 mg/dL (8.5-10.1)
[2024-05-04 15:13] LABS: CREATININE 1.2 mg/dL (0.55-1.3)
[2024-05-04] MEDS: ONDANSETRON *ODT* 4 MG TABLET SL PRN (21:36)
[2024-05-05] MEDS ORDERED: INSULIN (NOVOLOG) ASPART 100 UNITS/ML 10ML VIAL ONE (12:13)
[2024-05-07] MEDS: SUVOREXANT 10 MG TABLET PO PRN (21:07)
[2024-05-08 06:39] VITALS: RESP 16; TEMP 96.9
[2024-05-08 10:07] VITALS: BP 113/72; PULSE 78
[2024-05-08] MEDS ORDERED: NALOXONE (NYS OPIOID OVERDOSE PROGRAM) 4 MG/0.1 ML SPRAY NS PRN (14:05)
[2024-05-08] MEDS: NALOXONE (NYS OPIOID OVERDOSE PROGRAM) 4 MG/0.1 ML SPRAY NS SCH (14:20)
== END 2024-05-08 14:18 | disposition home or self-care (01) | DRG 772 ==
LOC: YASAS 15:46 → Y3NR 15:49 → Y5N 04-23 12:57
PROVIDERS: ADMIT Allergy & Immunology; ATTEND Family Medicine Addiction Medicine
PROC: HZ42ZZZ Group Counseling for Substance Abuse Treatment, Cognitive-Behavioral (ICD-10-PCS; principal; 2024-04-22)
DX: F10.20 Alcohol dependence, uncomplicated (principal); F14.20 Cocaine dependence, uncomplicated; F11.20 Opioid dependence, uncomplicated; F17.210 Nicotine dependence, cigarettes, uncomplicated; E72.20 Disorder of urea cycle metabolism, unspecified; I10 Essential (primary) hypertension; E11.9 Type 2 diabetes mellitus without complications; Z79.84 Long term (current) use of oral hypoglycemic drugs; L03.115 Cellulitis of right lower limb; L03.116 Cellulitis of left lower limb; N39.0 Urinary tract infection, site not specified; B96.20 Unspecified Escherichia coli [E. coli] as the cause of diseases classified elsewhere; Z20.822 Contact with and (suspected) exposure to COVID-19; R26.89 Other abnormalities of gait and mobility; Z99.89 Dependence on other enabling machines and devices; Z59.02 Unsheltered homelessness
CPT/HCPCS: 0241U-QW; 36415; 71045-TC-FY; 80048; 80053; 81003; 82140; 82652; 82962; 83036; 83735; 83880; 85025; 85610; 87086; 87186; Q0162

== ENCOUNTER 2024-06-12 13:18 | Inpatient (IN) | payer OTHER ==
[2024-06-12 15:50] VITALS: BMI 21.2
[2024-06-12] MEDS ORDERED: POLYETHYLENE GLYCOL (HEALTHYLAX) 3350 17 GM PACKET PO PRN (16:15)
[2024-06-12] MEDS ORDERED: LOPERAMIDE HCL 2 MG CAPSULE PO PRN (16:15)
[2024-06-12] MEDS ORDERED: DOCUSATE SODIUM 100 MG CAPSULE (FP) PO PRN (16:15)
[2024-06-12] MEDS ORDERED: BENZOCAINE/MENTHOL (CHLORASEPTIC ) LOZENGE MM PRN (16:15)
[2024-06-12] MEDS ORDERED: NICOTINE POLACRILEX 2 MG GUM BUC PRN (16:15)
[2024-06-12] MEDS ORDERED: ACETAMINOPHEN 325 MG TABLET (FP) PO PRN (16:15)
[2024-06-12] MEDS ORDERED: NALOXONE (NARCAN) HCL 4 MG/0.1 ML SPRAY NS PRN (16:15)
[2024-06-12] MEDS ORDERED: BISACODYL 5 MG TABLET.DR (FP) PO PRN (16:15)
[2024-06-12] MEDS ORDERED: MAGNESIUM HYDROX 2400MG/30ML ORAL SUSPENSION 30 ML CUP PO PRN (16:15)
[2024-06-12] MEDS ORDERED: IBUPROFEN 400 MG TABLET (FP) PO PRN (16:15)
[2024-06-12] MEDS ORDERED: guaiFENesin 600 MG TABLET.ER (FP) PO PRN (16:15)
[2024-06-12] MEDS ORDERED: BENZONATATE 200 MG CAPSULE PO PRN (16:15)
[2024-06-12] MEDS ORDERED: MAG HYDROX/AL HYDROX/SIMETH 30 ML UNIT-DOSE CUP PO PRN (16:15)
[2024-06-12] MEDS ORDERED: NICOTINE POLACRILEX 2 MG LOZENGE BC PRN (16:15)
[2024-06-12] MEDS ORDERED: guaiFENesin 200 MG/10 ML 10 ML UNIT-DOSE CUPS PO PRN (19:33)
[2024-06-12] MEDS: MAGNESIUM OXIDE 400 MG TABLET (FP) PO SCH (23:28)
[2024-06-12] MEDS: MELATONIN 5 MG TABLETS PO SCH (23:28)
[2024-06-12] MEDS: BUDESONIDE/FORMETEROL FUMARATE 160/4.5 mcg INHALER IH SCH (23:29)
[2024-06-12] MEDS: THIAMINE 100 MG TABLET PO SCH (23:29)
[2024-06-13] MEDS: PRENATAL VITAMINS W/ FOLIC ACID TABLET (FP) PO SCH (09:57)
[2024-06-13 10:29] LABS: POTASSIUM 5.4 mmol/L (3.5-5.1)
[2024-06-13 10:35] LABS: ALBUMIN 2.8 g/dl (3.4-5.0)
[2024-06-13 10:37] LABS: CALCIUM 9.1 mg/dL (8.5-10.1)
[2024-06-13 10:38] LABS: BILIRUBIN,TOTAL 0.2 mg/dL (0.2-1); CREATININE 1.4 mg/dL (0.55-1.3); TOT PROT 7.8 g/dl (6.4-8.2)
[2024-06-13 10:42] LABS: HEMATOCRIT 37.8 % (35.4-49); MCH 25.9 pg (25.7-33.7); MCHC 31.8 g/dl (32.0-35.9); MEAN CELL VOLUME 81.3 fl (80-96); MEAN PLT VOLUME 6.7 fl (7.5-11.1); PLATELET COUNT 500 10^3/uL (134-434); RBC 4.64 M/mm3 (4.00-5.60); RDW 16.2 % (11.9-15.9); WHITE BLOOD COUNT 7.4 K/mm3 (4.0-10.0)
[2024-06-13] MEDS: methaDONE HCL 10 MG TABLET PO SCH (11:47)
[2024-06-13] MEDS: SUVOREXANT 5 MG TABLET PO PRN (22:54)
[2024-06-14 10:08] LABS: POTASSIUM 5.1 mmol/L (3.5-5.1)
[2024-06-14 10:14] LABS: CALCIUM 9.2 mg/dL (8.5-10.1)
[2024-06-14 10:15] LABS: BLOOD UREA NITROGEN 20.6 mg/dL (7-18)
[2024-06-14 10:19] LABS: CREATININE 0.9 mg/dL (0.55-1.3)
[2024-06-14] MEDS: methaDONE HCL 40 MG DISPERSABLE TABLET PO ONE (11:31)
[2024-06-14] MEDS: IBUPROFEN 600 MG TABLET (FP) PO PRN (22:23)
[2024-06-15] MEDS ORDERED: methaDONE HCL 10 MG TABLET PO SCH (08:30)
[2024-06-16 13:21] LABS: EPI CELLS 1 /uL (0-25.1); HYALINE CASTS 1 /uL (0-3.1); PH,URINE 5.5 (5.0-8.0); URINE APPEARANCE CLOUDY; URINE BILIRUBIN NEGATIVE (NEGATIVE); URINE COLOR YELLOW; URINE GLUCOSE (UA) NEGATIVE (NEGATIVE); URINE KETONE NEGATIVE (NEGATIVE); URINE LEUK ESTERASE 2+ (NEGATIVE); URINE NITRITE POSITIVE (NEGATIVE); URINE PROTEIN NEGATIVE (NEGATIVE); URINE RBC 19 /uL (0-23.9); URINE UROBILINOGEN 0.2 mg/dL (0.2-1.0); URINE WBC 627 /uL (0-25.8)
[2024-06-16 13:23] LABS: URINE BACTERIA 761.3 /uL (0-1359)
[2024-06-17] MEDS ORDERED: methaDONE HCL 40 MG DISPERSABLE TABLET PO SCH (12:04)
[2024-06-17] MEDS: HYDROCHLOROTHIAZIDE 25 MG TABLET (FP) PO SCH (13:26)
[2024-06-17] MEDS: NITROFURANTOIN MONOHYD/M-CRYST 100 MG CAPSULE PO SCH (13:26)
[2024-06-17 17:56] LABS: EPI CELLS 0 /uL (0-25.1); HYALINE CASTS 0 /uL (0-3.1); URINE APPEARANCE CLOUDY; URINE BACTERIA >9,000 /uL (0-1359); URINE BILIRUBIN NEGATIVE (NEGATIVE); URINE COLOR YELLOW; URINE GLUCOSE (UA) NEGATIVE (NEGATIVE); URINE KETONE NEGATIVE (NEGATIVE); URINE LEUK ESTERASE 3+ (NEGATIVE); URINE NITRITE POSITIVE (NEGATIVE); URINE PROTEIN TRACE (NEGATIVE); URINE RBC 42 /uL (0-23.9); URINE UROBILINOGEN 0.2 mg/dL (0.2-1.0); URINE WBC 1612 /uL (0-25.8)
[2024-06-17] MEDS: VITAMINS A AND D TOPICAL OINTMENT TP SCH (20:07)
[2024-06-17] MEDS: BACLOFEN 10 MG TABLET (FP) PO SCH (21:30)
[2024-06-18] MEDS: methaDONE 80 MG, methaDONE 20 MG PO SCH (06:23)
[2024-06-18] MEDS: ALBUTEROL SO4 HFA INHALER IH PRN (09:08)
[2024-06-18] MEDS: P-EPHED 60MG/TRIPROLIDI 2.5MG TABLET PO PRN (09:10)
[2024-06-18] MEDS: ASPIRIN COATED 81 MG TABLET.EC PO SCH (10:38)
[2024-06-19 03:02] VITALS: BP 123/77; PULSE 83; RESP 18; TEMP 97.7
== END 2024-06-19 03:46 | disposition short-term general hospital (02) | DRG 772 ==
LOC: YASAS 13:18 → Y3NR 17:43 → Y3E 06-15 10:23
PROVIDERS: ADMIT Psychiatry & Neurology Pain Medicine; ATTEND Psychiatry & Neurology Pain Medicine
PROC: HZ42ZZZ Group Counseling for Substance Abuse Treatment, Cognitive-Behavioral (ICD-10-PCS; principal; 2024-06-12)
DX: F11.20 Opioid dependence, uncomplicated (principal); F14.20 Cocaine dependence, uncomplicated; F10.20 Alcohol dependence, uncomplicated; F17.210 Nicotine dependence, cigarettes, uncomplicated; F19.282 Other psychoactive substance dependence with psychoactive substance-induced sleep disorder; F19.24 Other psychoactive substance dependence with psychoactive substance-induced mood disorder; E78.2 Mixed hyperlipidemia; I10 Essential (primary) hypertension; J45.909 Unspecified asthma, uncomplicated; R60.0 Localized edema; R26.89 Other abnormalities of gait and mobility; M54.50 Low back pain, unspecified; G89.29 Other chronic pain; L03.115 Cellulitis of right lower limb; L03.116 Cellulitis of left lower limb; S09.90XA Unspecified injury of head, initial encounter; W19.XXXA Unspecified fall, initial encounter; Y93.89 Activity, other specified; Y92.231 Patient bathroom in hospital as the place of occurrence of the external cause; Z88.0 Allergy status to penicillin
CPT/HCPCS: 36415; 80048; 80053; 80305; 80307; 81003; 82140; 85027; 87086; 87186; 87811; 93005; 93010; J0475

== ENCOUNTER 2024-06-20 13:58 | Inpatient (IN) | payer OTHER ==
[2024-06-20 14:24] VITALS: BMI 20.9
[2024-06-20] MEDS ORDERED: MAGNESIUM HYDROX 2400MG/30ML ORAL SUSPENSION 30 ML CUP PO PRN (14:30)
[2024-06-20] MEDS ORDERED: NICOTINE POLACRILEX 2 MG LOZENGE BC PRN (14:30)
[2024-06-20] MEDS ORDERED: ACETAMINOPHEN 325 MG TABLET (FP) PO PRN (14:30)
[2024-06-20] MEDS ORDERED: BENZONATATE 200 MG CAPSULE PO PRN (14:30)
[2024-06-20] MEDS ORDERED: IBUPROFEN 400 MG TABLET (FP) PO PRN (14:30)
[2024-06-20] MEDS ORDERED: POLYETHYLENE GLYCOL (HEALTHYLAX) 3350 17 GM PACKET PO PRN (14:30)
[2024-06-20] MEDS ORDERED: NICOTINE POLACRILEX 2 MG GUM BUC PRN (14:30)
[2024-06-20] MEDS ORDERED: NALOXONE HCL 0.4 MG/ML VIAL IVPUSH PRN (14:30)
[2024-06-20] MEDS ORDERED: guaiFENesin 600 MG TABLET.ER (FP) PO PRN (14:30)
[2024-06-20] MEDS ORDERED: MAG HYDROX/AL HYDROX/SIMETH 30 ML UNIT-DOSE CUP PO PRN (14:30)
[2024-06-20] MEDS ORDERED: BENZOCAINE/MENTHOL (CHLORASEPTIC ) LOZENGE MM PRN (14:30)
[2024-06-20] MEDS ORDERED: NALOXONE (NARCAN) HCL 4 MG/0.1 ML SPRAY NS PRN (14:30)
[2024-06-20] MEDS ORDERED: ALBUTEROL SO4 HFA INHALER IH PRN (16:12)
[2024-06-20] MEDS ORDERED: guaiFENesin 200 MG/10 ML 10 ML UNIT-DOSE CUPS PO PRN (16:12)
[2024-06-20] MEDS: BUDESONIDE/FORMETEROL FUMARATE 160/4.5 mcg INHALER IH SCH (21:04)
[2024-06-20] MEDS: THIAMINE 100 MG TABLET PO SCH (21:05)
[2024-06-20] MEDS: ROSUVASTATIN CA 10 MG TABLET PO SCH (21:05)
[2024-06-20] MEDS: MAGNESIUM OXIDE 400 MG TABLET (FP) PO SCH (21:05)
[2024-06-20] MEDS: IBUPROFEN 600 MG TABLET (FP) PO PRN (21:07)
[2024-06-21] MEDS: methaDONE HCL 10 MG TABLET PO SCH (08:38)
[2024-06-21] MEDS: FERROUS SO4 325 MG TABLET (FP) PO SCH (09:58)
[2024-06-21] MEDS: PRENATAL VITAMINS W/ FOLIC ACID TABLET (FP) PO SCH (09:58)
[2024-06-22] MEDS: HYDROCHLOROTHIAZIDE 12.5 MG CAPSULE (FP) PO SCH (09:59)
[2024-06-22] MEDS: METHOCARBAMOL 500 MG TABLET PO PRN (21:21)
[2024-06-23] MEDS ORDERED: HYDROCHLOROTHIAZIDE 12.5 MG CAPSULE (FP) PO SCH ×2 (11:37→11:38)
[2024-06-23] MEDS: VITAMINS A AND D TOPICAL OINTMENT TP SCH (12:50)
[2024-06-23] MEDS: SUVOREXANT 5 MG TABLET PO PRN (21:26)
[2024-06-24] MEDS: HYDROCHLOROTHIAZIDE 12.5 MG CAPSULE (FP) PO SCH (10:00)
[2024-06-25] MEDS: LIDOCAINE 5% TOPICAL PATCH TP SCH (12:03)
[2024-06-25] MEDS: LIDOCAINE PATCH REMOVAL MC SCH (21:11)
[2024-06-26] MEDS ORDERED: methaDONE HCL 40 MG DISPERSABLE TABLET PO SCH (06:00)
[2024-06-26 11:32] LABS: BLOOD UREA NITROGEN 29.5 mg/dL (7-18); CALCIUM 9.6 mg/dL (8.5-10.1)
[2024-06-26 11:35] LABS: CREATININE 0.9 mg/dL (0.55-1.3)
[2024-06-26] MEDS: SUVOREXANT 5 MG TABLET PO PRN (21:37)
[2024-06-29] MEDS ORDERED: methaDONE HCL 10 MG TABLET PO SCH (06:00)
[2024-06-30] MEDS: LOPERAMIDE HCL 2 MG CAPSULE PO PRN (02:30)
[2024-06-30] MEDS: SUVOREXANT 5 MG TABLET PO PRN (21:26)
[2024-07-01] MEDS ORDERED: HYDROCHLOROTHIAZIDE 12.5 MG CAPSULE (FP) PO SCH (11:51)
[2024-07-02] MEDS: HYDROCHLOROTHIAZIDE 25 MG TABLET (FP) PO SCH (09:49)
[2024-07-02] MEDS: SUVOREXANT 5 MG TABLET PO PRN (21:30)
[2024-07-05 06:52] VITALS: TEMP 97.5
[2024-07-05 14:19] VITALS: RESP 18
[2024-07-05] MEDS: SUVOREXANT 5 MG TABLET PO PRN (21:05)
[2024-07-06] MEDS ORDERED: methaDONE HCL 10 MG TABLET PO ONE (06:00)
[2024-07-06 10:14] VITALS: BP 117/78; PULSE 83
== END 2024-07-06 09:40 | disposition home or self-care (01) | DRG 772 ==
LOC: YASAS 13:58 → Y5N 16:41
PROVIDERS: ADMIT Allergy & Immunology; ATTEND Psychiatry & Neurology Pain Medicine
PROC: HZ42ZZZ Group Counseling for Substance Abuse Treatment, Cognitive-Behavioral (ICD-10-PCS; principal; 2024-06-20)
DX: F11.20 Opioid dependence, uncomplicated (principal); F14.20 Cocaine dependence, uncomplicated; F17.210 Nicotine dependence, cigarettes, uncomplicated; F19.282 Other psychoactive substance dependence with psychoactive substance-induced sleep disorder; F19.24 Other psychoactive substance dependence with psychoactive substance-induced mood disorder; E87.5 Hyperkalemia; I10 Essential (primary) hypertension; N39.0 Urinary tract infection, site not specified; B96.89 Other specified bacterial agents as the cause of diseases classified elsewhere; L85.3 Xerosis cutis; M25.569 Pain in unspecified knee; M54.50 Low back pain, unspecified; G89.29 Other chronic pain; Z99.89 Dependence on other enabling machines and devices; Z59.02 Unsheltered homelessness; S09.90XA Unspecified injury of head, initial encounter; S32.591A Other specified fracture of right pubis, initial encounter for closed fracture; W19.XXXA Unspecified fall, initial encounter; Y92.239 Unspecified place in hospital as the place of occurrence of the external cause
CPT/HCPCS: 0241U-QW; 36415; 70450-TC; 71045-TC-FY; 71260-TC; 72125-TC; 72170-TC-FY; 74177-TC; 80048; 80053; 80305; 80307; 81003; 82140; 82272; 82962; 83735; 84100; 84484; 85025; 85027; 85610; 85730; 86803; 86850; 86900; 86901; 87086; 87389; 93005; 93010; 93306-TC; G0378; Q9967